=== PATIENT | female | born 1990 | race Caucasian/White ===

== ENCOUNTER → 2016-12-05 | Day surgery (SDC) | payer OTHER ==
[~2016-12-05] VITALS: Ht 165.1 cm; Wt 79.4 kg
[~2016-12-05] MED LIST: JUNEL FE 1.5 M1 EACH PO; MOTRIN 600 MG600 MG PO; VYVANSE40 M1 PO
--- NOTE | 2016-12-05 12:26 | Operative Report ---
Operative/Inv Procedure Report Surgery Date: 12/05/16 Name of Procedure: Cervical biopsy at 6 and 11:00, four-quadrant laser ablation of the cervix. 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 Colposcopic biopsies 6 and 11:00 were grade BRE-1 to 2. Endocervical curettage previously negative Post-Operative Diagnosis: Same Estimated Blood Loss: scant Surgeon/Auto Bench Mechanic: JOSELYN ALLISON,APRYL Samano Anesthesia: laryngeal mask airway Monitors: Blood pressure cuff, EKG electrodes, pulse oximeter IV Fluids: 550 crystalloid Implants: None Urine Output: No catheterization, not measured Drains: None Specimens: 1: 6:00 cervix 2: 11:00 cervix 3: Endocervical curettage Microbiology: None Tourniquet: None Complications: None Condition: Good Operative Indication: Patient previously with ASCUS Pap with positive high-risk HPV, colposcopic biopsy at 6:00 and 11:00 for BRE 1-2. Prior ECC was within normal limits. Operative/Procedure Note Note: Patient was brought to the operating room and placed in the OR table in the dorsal supine position. Timeout was discussed by the team and agreed upon. Patient was given IV sedation and then LMA for anesthesia management. After good level of anesthesia patient was placed in dorsal lithotomy position and appropriately draped. Patient's perineal area was then draped with wet towels. Blackened speculum was placed in the vagina and the cervix was visualized. Lugol's solution was applied to the cervix. Laser and operating microscope were brought into focus. With the laser setting set at 18 W power continuous the outer margin for the four-quadrant ablation was marked with individual spots. Dilute Pitressin solution was utilized to infiltrate the cervix to limit bleeding biopsy taken at 6:00 and then second biopsy taken at 11:00 on the cervix. Laser was set to 18 W continuous power, and four-quadrant ablation was taken. The outer margin of the four-quadrant ablation was 6 mm from the lateral edge of the external os of the cervix and 7 mm deep. After performance adequate four-quadrant ablation endocervical curettage was performed specimen was submitted. Good hemostasis was observed throughout the procedure. Monsel solution applied to the cervix. All instruments moved from the vagina. Sponge, needle, instrument and lap pad count were correct 2. Patient was awakened from anesthesia and the LMA was removed from her oral pharynx and she was taken recovery room in good condition Findings: Margins of her cervical dysplasia were easily feel the delineated with Lugol's solution. Dilute Pitressin was used to manage potential cervical bleeding. Specific biopsies taken again at 6:00 and 11:00 from the cervix. Four-quadrant laser ablation was achieved using 18 W continuous power. Outer edge and of the ablation was 6-7 mm from the lateral edge of the external os of the cervix and 7 mm deep. Endocervical curettage performed and specimen submitted. Good hemostasis at the completion the procedure. Specimens of cervical biopsies at 6:00 and 11:00 in addition to endocervical curettage following completion of the four-quadrant ablation Discharge Disposition: PACU
== END ==
LOC: STS 01:56
DX: N87.1 Moderate cervical dysplasia (principal); R89.6 Abnormal cytological findings in specimens from other organs, systems and tissues; N72 Inflammatory disease of cervix uteri; F17.200 Nicotine dependence, unspecified, uncomplicated
CPT/HCPCS: 81025; 88305; J2250